=== PATIENT | female | born 1950 | race Two or more races ===

== ENCOUNTER 2019-07-30 08:19 | Outpatient (CLI) | payer OTHER ==
[~2019-07-30] VITALS: Ht 152.4 cm; Wt 88.0 kg
== END 2019-07-30 14:43 | disposition home or self-care (01) ==
LOC: OFIC 805 08:19
DX: H90.42 Sensorineural hearing loss, unilateral, left ear, with unrestricted hearing on the contralateral side (principal); H93.12 Tinnitus, left ear; H92.02 Otalgia, left ear